=== PATIENT | female | born 1960 | race Caucasian/White ===

== ENCOUNTER 2017-11-05 04:36 | Emergency (ER) | payer MEDICARE, MEDICAID ==
[~2017-11-05] VITALS: Ht 157.5 cm; Wt 44.1 kg
[~2017-11-05 04:36] MED LIST: ALBU18HF2 IH; CLON1TAB10; COL100C PO; DIPH-423 PO; EPIN0.3P8 IM; FLUT12AE4 IH; LISI40TA4 PO; METH5TAB PO; NORCO10T PO; OMEP20TA5 PO; ONDA8TAB9 PO; PREG75CA30 PO; SENN-29 PO
[2017-11-05] MEDS ORDERED: ipratropium/albuterol 3ml nebule NEB ONE (05:50)
[2017-11-05] MEDS ORDERED: ipratropium/albuterol 3ml nebule ONE (05:51)
[2017-11-05 06:14] LABS: INR 1.1 INR; PARTIAL THROMBOPLASTIN TIME 26 SECONDS (22-32); PROTHROMBIN TIME 11.3 SECONDS (9.0-12.0)
[2017-11-05 06:19] LABS: BASOPHILS % (AUTO) 0.4 % (0-1); EOSINOPHILS # (AUTO) 0.1 X10'3 (0-0.9); EOSINOPHILS % (AUTO) 1.3 % (0-6); HEMATOCRIT 43.8 % (35.0-45.0); HEMOGLOBIN 15.3 g/dl (12.0-16.0); LYMPHOCYTES # (AUTO) 1.1 X10'3 (1.1-4.8); LYMPHOCYTES % (AUTO) 12.9 % (21-51); MEAN CORPUSCULAR HEMOGLOBIN 29.9 PG (27.0-31.0); MEAN CORPUSCULAR HGB CONC 34.8 % (33.0-36.5); MEAN CORPUSCULAR VOLUME 85.9 FL (78-98); MEAN PLATELET VOLUME 9.9 FL (7.4-10.4); MONOCYTES # (AUTO) 0.4 X10'3 (0-0.9); MONOCYTES % (AUTO) 4.7 % (2-12); NEUTROPHILS # (AUTO) 6.9 X10'3 (1.8-7.7); NEUTROPHILS % (AUTO) 80.7 % (42-75); PLATELET COUNT 110 X10'3 (140-440); RED CELL DISTRIBUTION WIDTH 12.8 % (11.5-14.5); WHITE BLOOD COUNT 8.5 X10'3 (4.5-11.0)
[2017-11-05 06:29] LABS: ALANINE AMINOTRANSFERASE 14 U/L (12-78); ALBUMIN 4.2 G/DL (3.4-5.0); ALBUMIN/GLOBULIN RATIO 1.4 (1.1-1.5); ALKALINE PHOSPHATASE 97 IU/L (46-116); ANION GAP 6 (8-16); ASPARTATE AMINO TRANSFERASE 15 U/L (10-37); BILIRUBIN,TOTAL 0.6 MG/DL (0.1-1.0); BLOOD UREA NITROGEN 13 MG/DL (7-18); BUN/CREATININE RATIO 15.1 (6.6-38.0); CALCIUM 8.7 MG/DL (8.5-10.1); CHLORIDE 105 MMOL/L (99-107); CREATININE 0.86 MG/DL (0.40-0.90); GLUCOSE 91 MG/DL (70-104); POTASSIUM 3.6 MMOL/L (3.5-5.1); SODIUM 144 MMOL/L (135-145); TOTAL CARBON DIOXIDE 32.7 MMOL/L (24-32); TOTAL PROTEIN 7.3 G/DL (6.4-8.2); eGFR 68 ML/MIN
[2017-11-05 08:03] VITALS: BP 108/61
[2017-11-05] MEDS ORDERED: predniSONE 20 mg tablet PO ONE (08:05)
[2017-11-05] MEDS ORDERED: PRED20TA PO (08:08)
[2017-11-05] MEDS ORDERED: LEVO500T89 PO (08:08)
[2017-11-05] MEDS ORDERED: BENZ-38 PO (08:08)
[2017-11-06] MEDS ORDERED: ONDA8TAB9 PO (02:36)
[2017-11-06] MEDS ORDERED: DOXY50CA6 PO (02:37)
== END 2017-11-05 09:28 | disposition home or self-care (01) ==
LOC: ER 04:37
DX: J44.1 Chronic obstructive pulmonary disease with (acute) exacerbation (principal); I10 Essential (primary) hypertension; K21.9 Gastro-esophageal reflux disease without esophagitis; G89.29 Other chronic pain; M79.7 Fibromyalgia; Z56.0 Unemployment, unspecified; Z86.73 Personal history of transient ischemic attack (TIA), and cerebral infarction without residual deficits; Z90.49 Acquired absence of other specified parts of digestive tract; Z98.51 Tubal ligation status; Z88.0 Allergy status to penicillin; Z88.2 Allergy status to sulfonamides; Z88.5 Allergy status to narcotic agent; Z79.899 Other long term (current) drug therapy
CPT/HCPCS: 36415; 71045; 80053; 84145; 84484; 85025; 85610; 85730; 93005; 94640; 94760; 99285; J7512

== ENCOUNTER 2017-11-06 01:51 | Emergency (ER) | payer MEDICARE, MEDICAID ==
[~2017-11-06] VITALS: Ht 157.5 cm; Wt 44.0 kg
[~2017-11-06 01:51] MED LIST changes: +BENZ-38 PO; +LEVO500T89 PO; +PRED20TA PO
[2017-11-06 01:56] VITALS: BP 154/79
[2017-11-06] MEDS ORDERED: ondansetron 4mg rapidly disintigrating tab PO ONE (02:35)
[2017-11-06] MEDS ORDERED: HYDROcodone/acetaminophen 5mg/325mg tablet PO ONE (02:35)
[2017-11-06] MEDS ORDERED: ONDA8TAB9 PO (02:36)
[2017-11-06] MEDS ORDERED: DOXY50CA6 PO (02:37)
== END 2017-11-06 02:52 | disposition home or self-care (01) ==
LOC: ER 01:52
DX: G89.29 Other chronic pain (principal); J44.9 Chronic obstructive pulmonary disease, unspecified; I10 Essential (primary) hypertension; K21.9 Gastro-esophageal reflux disease without esophagitis; M79.7 Fibromyalgia; Z86.73 Personal history of transient ischemic attack (TIA), and cerebral infarction without residual deficits; Z90.49 Acquired absence of other specified parts of digestive tract; Z98.51 Tubal ligation status; Z90.89 Acquired absence of other organs; Z56.0 Unemployment, unspecified; Z88.0 Allergy status to penicillin; Z88.2 Allergy status to sulfonamides; Z88.5 Allergy status to narcotic agent; Z79.899 Other long term (current) drug therapy
CPT/HCPCS: 99283

== ENCOUNTER 2022-04-01 19:43 | Emergency (ER) | payer BC, MEDICAID ==
[~2022-04-01] VITALS: Ht 157.5 cm; Wt 43.2 kg
[~2022-04-01 19:43] MED LIST changes: -BENZ-38 PO; -CLON1TAB10; +DOXY50CA PO; -LEVO500T89 PO; +LISI40TA13 PO; -LISI40TA4 PO; +OMEP20TA43 PO; -OMEP20TA5 PO; +ONDA4TAB6 PO; -PRED20TA PO; +[UNRECOGNIZED DRUG - CODE]
[2022-04-01 21:47] VITALS: BP 168/107
[2022-04-01] MEDS ORDERED: LIDOcaine 1% W/epiNEPHrine 1:200,000 10ml vial IJ ONE (22:05)
[2022-04-01] MEDS ORDERED: TETanus/Pertussis (Acell)/Diphther VAC/PF (Tdap-Adult) 0.5ml syringe IMVAC ONE (22:05)
[2022-04-01] MEDS ORDERED: DOXYCYCLINE 100MG CAPSULE PO STA (22:05)
[2022-04-01] MEDS ORDERED: cephalexin 250mg capsule PO ONE (22:05)
[2022-04-01] MEDS ORDERED: CEPH250T PO (22:56)
[2022-04-01] MEDS ORDERED: DOXY100C76 PO (22:56)
--- NOTE | 2022-04-01 23:09 | NUR ---
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
== END 2022-04-01 23:09 | disposition home or self-care (01) ==
LOC: ER 19:44
DX: L02.512 Cutaneous abscess of left hand (principal); I10 Essential (primary) hypertension; J44.9 Chronic obstructive pulmonary disease, unspecified; K21.9 Gastro-esophageal reflux disease without esophagitis; G89.29 Other chronic pain; M54.50 Low back pain, unspecified; Z88.0 Allergy status to penicillin; Z88.2 Allergy status to sulfonamides; Z90.49 Acquired absence of other specified parts of digestive tract; Z98.51 Tubal ligation status; Z56.0 Unemployment, unspecified
CPT/HCPCS: 26010; 90471; 90715; 99283

== ENCOUNTER 2022-11-28 16:13 | Emergency (ER) | payer BC, MEDICAID ==
[2022-11-28 16:46] LABS: MEAN CORPUSCULAR HGB CONC 34.5 g/dL (33.0-36.5)
[2022-11-28 16:48] LABS: BASOPHILS # (AUTO) 0.1 X10'3 (0-0.2); BASOPHILS % (AUTO) 0.9 % (0-1); EOSINOPHILS % (AUTO) 0.6 % (0-6); HEMATOCRIT 42.4 % (35.0-45.0); HEMOGLOBIN 14.6 g/dl (12.0-16.0); LYMPHOCYTES # (AUTO) 1.8 X10'3 (1.1-4.8); LYMPHOCYTES % (AUTO) 22.4 % (21-51); MEAN CORPUSCULAR HEMOGLOBIN 30.4 PG (27.0-31.0); MEAN CORPUSCULAR VOLUME 88.2 FL (78-98); MEAN PLATELET VOLUME 8.5 FL (7.4-10.4); MONOCYTES # (AUTO) 0.5 X10'3 (0-0.9); NEUTROPHILS # (AUTO) 5.8 X10'3 (1.8-7.7); NEUTROPHILS % (AUTO) 70.1 % (42-75); PLATELET COUNT 164 X10'3 (140-440); RED CELL DISTRIBUTION WIDTH 12.5 % (11.5-14.5); WHITE BLOOD COUNT 8.2 X10'3 (4.5-11.0)
[2022-11-28 17:04] LABS: ALANINE AMINOTRANSFERASE 22 U/L (12-78); ALBUMIN 3.9 G/DL (3.4-5.0); ALBUMIN/GLOBULIN RATIO 1.3 (1.1-1.5); ALKALINE PHOSPHATASE 111 IU/L (46-116); ANION GAP 6 (8-16); ASPARTATE AMINO TRANSFERASE 16 U/L (10-37); BILIRUBIN,TOTAL 0.2 MG/DL (0.1-1.0); BLOOD UREA NITROGEN 16 MG/DL (7-18); BUN/CREATININE RATIO 13.8 (10.0-20.0); CALCIUM 9.2 MG/DL (8.5-10.1); CHLORIDE 105 MMOL/L (99-107); CREATININE 1.16 MG/DL (0.40-0.90); GLUCOSE 140 MG/DL (70-104); POTASSIUM 3.4 MMOL/L (3.5-5.1); SODIUM 140 MMOL/L (135-145); eGFR 47 ML/MIN
[2022-11-28 17:11] LABS: PRO BRAIN NATRIURETIC PEPTIDE 1342 PG/ML (0-125)
== END 2022-11-28 17:30 | disposition left against medical advice (07) ==
LOC: ER 16:13
DX: I10 Essential (primary) hypertension (principal); Z53.21 Procedure and treatment not carried out due to patient leaving prior to being seen by health care provider
CPT/HCPCS: 36415; 80053; 83880; 84484; 85025

== ENCOUNTER 2024-03-19 14:19 | Emergency (ER) | payer BC, MEDICAID ==
[~2024-03-19] VITALS: Ht 157.5 cm; Wt 53.5 kg
[~2024-03-19 14:19] MED LIST changes: -DOXY50CA PO; +DOXY50CA12 PO
[2024-03-19 14:41] VITALS: TEMP 97.8
[2024-03-19 15:16] LABS: BASOPHILS # (AUTO) 0.1 X10'3 (0-0.2); BASOPHILS % (AUTO) 0.8 % (0-1); EOSINOPHILS # (AUTO) 0.1 X10'3 (0-0.9); EOSINOPHILS % (AUTO) 0.6 % (0-6); HEMATOCRIT 44.1 % (35.0-45.0); HEMOGLOBIN 14.9 g/dl (12.0-16.0); LYMPHOCYTES # (AUTO) 1.7 X10'3 (1.1-4.8); LYMPHOCYTES % (AUTO) 13.9 % (21-51); MEAN CORPUSCULAR HEMOGLOBIN 28.9 PG (27.0-31.0); MEAN CORPUSCULAR HGB CONC 33.7 g/dL (33.0-36.5); MEAN CORPUSCULAR VOLUME 85.7 FL (78-98); MEAN PLATELET VOLUME 8.4 FL (7.4-10.4); MONOCYTES # (AUTO) 0.9 X10'3 (0-0.9); MONOCYTES % (AUTO) 7.1 % (2-12); NEUTROPHILS # (AUTO) 9.5 X10'3 (1.8-7.7); NEUTROPHILS % (AUTO) 77.6 % (42-75); PLATELET COUNT 244 X10'3 (140-440); RED BLOOD COUNT 5.15 X10'6 (4.20-5.60); RED CELL DISTRIBUTION WIDTH 14.7 % (11.5-14.5); WHITE BLOOD COUNT 12.2 X10'3 (4.5-11.0)
[2024-03-19 16:11] LABS: ALBUMIN 3.7 G/DL (3.4-5.0); ANION GAP 9 (8-16); BLOOD UREA NITROGEN 13 MG/DL (7-18); BUN/CREATININE RATIO 10.9 (10.0-20.0); CHLORIDE 100 MMOL/L (99-107); CREATININE 1.19 MG/DL (0.40-0.90); GLUCOSE 152 MG/DL (70-104); POTASSIUM 3.3 MMOL/L (3.5-5.1); PRO BRAIN NATRIURETIC PEPTIDE 232 PG/ML (0-125); SODIUM 137 MMOL/L (135-145); eCRCL 39 ML/MIN; eGFR 46 ML/MIN
[2024-03-19] MEDS: dexamethasone sod phosphate 10mg/ml inj IM STA (20:26)
[2024-03-19] MEDS: ipratropium/albuterol 3ml nebule NEB STA (20:38)
[2024-03-19] MEDS ORDERED: PRED20TA PO (20:39)
[2024-03-19 20:42] VITALS: PULSE 84; RESP 18; O2SAT 98
[2024-03-19 20:44] VITALS: BP 151/100
[2024-03-19 20:52] VITALS: PULSE 84; RESP 18; O2SAT 98
== END 2024-03-19 20:46 | disposition home or self-care (01) ==
LOC: ER 14:19
DX: J44.1 Chronic obstructive pulmonary disease with (acute) exacerbation (principal); R07.89 Other chest pain; M79.7 Fibromyalgia; K21.9 Gastro-esophageal reflux disease without esophagitis; Z88.0 Allergy status to penicillin; Z86.73 Personal history of transient ischemic attack (TIA), and cerebral infarction without residual deficits; I10 Essential (primary) hypertension; Z88.2 Allergy status to sulfonamides; Z88.8 Allergy status to other drugs, medicaments and biological substances; Z98.51 Tubal ligation status; Z90.49 Acquired absence of other specified parts of digestive tract; Z90.89 Acquired absence of other organs
CPT/HCPCS: 36415; 71046; 80048; 83605; 83880; 84484; 85025; 87040; 93005; 94640; 96372; 99285; J1100